=== PATIENT | female | born 2000 | race Two or more races ===

== ENCOUNTER 2019-12-18 16:22 | Outpatient (CLI) | payer OTHER ==
[2019-12-18 17:09] LABS: APPEARANCE,URINE SLIGHTLY-CLOUDY; BILIRUBIN,URINE NEGATIVE (NEGATIVE); COLOR,URINE YELLOW; GLUCOSE, URINE NEGATIVE (NEGATIVE); KETONES,URINE NEGATIVE (NEGATIVE); LEUKOCYTE ESTERASE,URINE NEGATIVE (NEGATIVE); NITRITE,URINE NEGATIVE (NEGATIVE); PROTEIN,URINE NEGATIVE (NEGATIVE); URINE SPECIFIC GRAVITY 1.013; UROBILINOGEN,URINE NEGATIVE mg/dL (<2.0)
[2019-12-18 17:22] LABS: BACTERIA (WET MOUNT) 4+ BACTERIA SEEN; EPITHELIALS (WET MOUNT) 4+ EPITHELIALS SEEN; RBCS (WET MOUNT) 2+ RBCS SEEN; T.VAGINALIS (WET MOUNT) NO TRICHOMONAS SEEN; WBCS (WET MOUNT) 4+ WBCS SEEN; YEAST (WET MOUNT) NO YEAST SEEN
[2019-12-18 17:22] LABS: URINE AMPHETAMINES SCREEN NEGATIVE; URINE BENZODIAZEPINES SCREEN NEGATIVE; URINE COCAINE SCREEN NEGATIVE; URINE MARIJUANA (THC) SCREEN NEGATIVE; URINE METHADONE SCREEN NEGATIVE; URINE PHENCYCLIDINE SCREEN NEGATIVE
[2019-12-18 17:26] LABS: URINE BARBITURATES SCREEN NEGATIVE
[2019-12-18 18:45] LABS: CHLAM PCR NOT DETECTED (NOT DETECT)
--- NOTE | 2019-12-18 19:19 | Non Stress Test Report ---
Non Stress Test Datetime Report Generated by CPN: 12/18/2019 19:19 DEMOGRAPHIC EGA NST: 33.3 INDICATION Indication for Study (NST) Other: IUP @ 33.3; not in labor VITAL SIGNS Temperature - NST: 98.6 Pulse - NST: 103 RESP - NST: 18 NBPSYS NST: 96 NBPDIA NST: 54 MONITORING Monitor Explained: Monitor Explained; Test Explained; Patient Verbalized Understanding Time on Monitor: 12/18/2019 16:40 Time off Monitor: 12/18/2019 19:00 NST Duration: 140 NST INTERVENTIONS NST Interventions: PO Hydration Physician Notified NST: Dr. Zaldivar BABY A: [id number] BABY A Movement : Present Contraction Frequency : Rare FHR Baseline : 145 Accelerations : 15X15 Decelerations : None Variability : Moderate 6-25bpm NST Review: Meets Criteria for Reactive NST NST Review and Verified By : SAIGE Barrera NST Results: Reactive NST REPORT Report Trigger: Send Report
== END 2019-12-18 19:14 | disposition home or self-care (01) ==
LOC: LC 16:22
PROVIDERS: ATTEND Obstetrics & Gynecology
DX: O47.03 False labor before 37 completed weeks of gestation, third trimester (principal); Z3A.33 33 weeks gestation of pregnancy
CPT/HCPCS: 59025; 80307; 81001; 87210; 87491; 87591

== ENCOUNTER 2020-01-28 08:19 | Inpatient (IN) | payer OTHER ==
[2020-01-28] MEDS ORDERED: OXYTOCIN/0.9 % SODIUM CHLORIDE 30 UNIT/500 ML RTUINJ ONE (08:32)
[2020-01-28] MEDS ORDERED: LIDOCAINE 1% INJ-PF (10 MG/ML) 30 ML SDV ONE (08:32)
[2020-01-28] MEDS ORDERED: OXYTOCIN 10 UNIT/ML VIAL ONE (08:32)
[2020-01-28] MEDS ORDERED: MISOPROSTOL 0.2 MG TABLET ONE (08:32)
[2020-01-28] MEDS ORDERED: PENICILLIN G-K 5 MILLION UNIT VIAL ONE (08:45)
--- NOTE | 2020-01-28 08:47 | Admission Physical ---
Datetime Report Generated by CPN: 01/28/2020 08:47 CURRENT ADMISSION Chief Complaint: Uterine Contractions Chief Complaint Other: Arrived with painful regular contractions : active labor Admit Impression : Term, Intrauterine ; Active Labor Admit Plan: Admit to Unit; Initiate Labor Protocol ALLERGIES Medication Allergies: No Medication Allergies: No Known Allergies (12/18/2019) Latex: No Latex Allergies OBSTETRICAL HISTORY EDC: 02/02/2020 00:00 : 2 Para: 1 Term: 1 PHYSICAL EXAM General: Normal HEENT: Normal Neurologic: Normal Thyroid: Normal Heart: Normal Lungs: Normal Breast: Normal Back: Normal Abdomen: Normal Genitourinary Exam: Normal Extremities: Normal DTRs: Normal Pelvic Type: Adequate Vital Signs: Reviewed; Within Normal Limits VAGINAL EXAM Dilatation: 9 Effacement: 100 Station: -1 Contraction Comments: every 2-4 minutes MEMBRANES Membranes: Intact FETUS A EGA: 39.2 Monitoring: External US FHR- Baseline: 125 Variability: Moderate 6-25bpm Accelerations: 15X15 Decelerations: None FHR Category: Category I Presentation: Breech Admit Comment: at 39.2 wks EGA in Active labor -Admit to LDR -VS Q 1 hr -CEFM and toco -NPO and IVFs: LR bolus 1 liter then 125 cc/hr -GBS positive, begin PCN but advancely dilated at 9 cm so one dose anticipated -Hx of one prior , anticipate INFORMED CONSENT Informed Consent Obtained: Vaginal Delivery; Risks, Benefits and Alternatives Discussed Signature: with User ID: [email or web address] : with User ID: [email or web address]
[2020-01-28] MEDS ORDERED: ACETAMINOPHEN WITH CODEINE #3 TABLET PO PRN ×2 (09:01)
[2020-01-28] MEDS ORDERED: ACETAMINOPHEN 650 MG SUPP.RECT PR PRN (09:01)
[2020-01-28] MEDS ORDERED: PROMETHAZINE HCL 25 MG SUPP.RECT PR PRN (09:01)
[2020-01-28] MEDS ORDERED: OXYTOCIN/0.9 % SODIUM CHLORIDE 30 UNIT/500 ML RTUINJ IV PRN (09:01)
[2020-01-28] MEDS ORDERED: ZOLPIDEM TARTRATE 5 MG TABLET PO PRN (09:01)
[2020-01-28] MEDS ORDERED: DIPH/PERTUSS(ACELL)/TETANUS VAC/PF 0.5 ML SYR (>=10YO) IM PRN (09:01)
[2020-01-28] MEDS ORDERED: BENZOCAINE/MENTHOL AEROSOL SPRAY 56 ML TOP PRN (09:01)
[2020-01-28] MEDS ORDERED: PSEUDOEPHEDRINE HCL 30 MG TABLET PO PRN (09:01)
[2020-01-28] MEDS ORDERED: MEASLES,MUMPS&RUBELLA VACC/PF 0.5 ML VIAL SUBCUT PRN (09:01)
[2020-01-28] MEDS ORDERED: PROMETHAZINE HCL 25 MG TABLET PO PRN (09:01)
[2020-01-28] MEDS ORDERED: DIBUCAINE 1% OINTMENT 28 GM TP PRN (09:01)
[2020-01-28] MEDS ORDERED: DIPHENHYDRAMINE HCL 25 MG CAPSULE PO PRN (09:01)
[2020-01-28] MEDS ORDERED: NA PHOS,M-B/NA PHOS,DI-BA (ADULT) 133 ML ENEMA PR PRN (09:01)
[2020-01-28] MEDS ORDERED: GLYCERIN/WITCH HAZEL LEAF 1 EACH MED..WIPE TP PRN (09:01)
[2020-01-28] MEDS ORDERED: MAGNESIUM HYDROXIDE SUSP 30 ML UDCUP PO PRN (09:01)
[2020-01-28] MEDS ORDERED: PROMETHAZINE HCL INJ 25 MG/1 ML VIAL IV PRN (09:01)
[2020-01-28 12:57] LABS: APPEARANCE,URINE CLEAR; BILIRUBIN,URINE NEGATIVE (NEGATIVE); GLUCOSE, URINE NEGATIVE (NEGATIVE); KETONES,URINE TRACE mg/dL (NEGATIVE); LEUKOCYTE ESTERASE,URINE NEGATIVE (NEGATIVE); NITRITE,URINE NEGATIVE (NEGATIVE); PROTEIN,URINE 30 mg/dL (NEGATIVE); URINE SPECIFIC GRAVITY 1.008; UROBILINOGEN,URINE NEGATIVE mg/dL (<2.0)
[2020-01-28 13:00] LABS: COLOR,URINE RED
[2020-01-28 13:08] LABS: URINE AMPHETAMINES SCREEN NEGATIVE; URINE BARBITURATES SCREEN NEGATIVE; URINE BENZODIAZEPINES SCREEN NEGATIVE; URINE COCAINE SCREEN NEGATIVE; URINE MARIJUANA (THC) SCREEN NEGATIVE; URINE METHADONE SCREEN NEGATIVE; URINE PHENCYCLIDINE SCREEN NEGATIVE
[2020-01-28 13:23] LABS: ABSOLUTE MONOCYTES (AUTO) 0.8 10^3/uL (0.1-1.4); ABSOLUTE NEUT (AUTO) 11.9 10^3/uL (1.7-8.2); BASOPHILS % (AUTO) 0.1 % (0-2); EOSINOPHILS % (AUTO) 0.1 % (0-6); HEMOGLOBIN 12.9 g/dL (12.0-15.5); LYMPHOCYTES % (AUTO) 13.4 % (13-45); MEAN CORPUSCULAR HEMOGLOBIN 30.9 pg (27.0-33.4); MEAN CORPUSCULAR HGB CONC 34.9 g/dL (32.0-36.0); MEAN CORPUSCULAR VOLUME 89 fl (80-97); MONOCYTES % (AUTO) 5.3 % (3-13); PLATELET COUNT 171 10^3/uL (150-450); RED BLOOD COUNT 4.18 10^6/uL (3.72-5.28); RED CELL DISTRIBUTION WIDTH 14.3 % (11.5-14.0); SEGMENTED NEUTROPHILS % (AUTO) 81.1 % (42-78); TOTAL CELLS COUNTED % (AUTO) 100 %; WHITE BLOOD COUNT 14.7 10^3/uL (4.0-10.5)
--- NOTE | 2020-01-28 13:45 | Delivery Summary ---
Del Sum A-C Datetime Report Generated by CPN: 01/28/2020 13:45 DELIVERY PERSONNEL DELIVERY PERSONNEL: [id number] Delivery Doctor:: Cherry Thornton CNM Labor and Delivery Nurse:: BUCK Godfrey Labor and Delivery Nurse:: Sheila Vera RN Nursery Nurse:: Nika Snider RN MATERNAL INFORMATION Delivery Anesthesia: None Meds After Delivery Comment: pitocin 30 units/500 nss Delivery QBL: 100 Maternal Complications: Precipitous Labor (<3hrs) Provider Comments: pt complete and started pushing, moving up in bed for delivery, out of control, viable female OA to ANTIONETTE, loose nuchal cord x 1 reduced, placed on mothers abdomen, mod meconium, cord clamped and cut after 2 minutes, given to nursery nurse, hsb at , spont delivery of grossly normal intact placenta FFFM massage, IV Pitocin, baby and mom remain in recovery in stable condition GBS +, unable to get antibiotics LABOR SUMMARY EDC: 02/02/2020 00:00 No. Babies in Womb: 1 Attempted: No Labor Anesthesia: None LABOR INFORMATION Reason for Induction: Not Applicable Onset of Labor: 01/28/2020 05:00 Complete Dilatation: 01/28/2020 08:46 Oxytocin: N/A Group B Beta Strep: positive Antibiotics # of Doses: 0 MEMBRANES Membranes Rupture Method: Spontaneous Rupture of Membranes: 01/28/2020 06:35 Length of Rupture (hr): 2.27 Amniotic Fluid Color: Moderate Meconium Amniotic Fluid Amount: Moderate Amniotic Fluid Odor: Normal STAGES OF LABOR Stage 1 hr: 3 Stage 1 min: 46 Stage 2 hr: 0 Stage 2 min: 5 Stage 3 hr: 0 Stage 3 min: 8 Total Time in Labor hr: 3 Total Time in Labor min: 59 VAGINAL DELIVERY Episiotomy: None Laceration #1: None Laceration Extension #1: N/A Laceration Repair: Not Applicable BABY A INFORMATION Delivery Date/Time: 01/28/2020 08:51 Method of Delivery: Vaginal Nurse Controlled Delivery: No Born in Route : No : N/A Forceps: N/A Vacuum Extraction: N/A Shoulder Dystocia : No PRESENTATION/POSITION BABY A Presentation: Cephalic Cephalic Presentation: Vertex Breech Presentation: N/A PLACENTA INFORMATION BABY A Placenta Delivery Time : 01/28/2020 08:59 Placenta Method of Delivery: Spontaneous Placenta Status: Delivered SCORES BABY A Heart Rate 1 min: >100 bpm Resp Effort 1 min: Good Cry Reflex Irritability 1 min: Cough or Sneeze or Pulls Away Muscle Tone 1 min: Active Motion Color 1 min: Blue/Pale SCORE 1 MIN: 8 Heart Rate 5 min: >100 bpm Resp Effort 5 min: Good Cry Reflex Irritability 5 min: Cough or Sneeze or Pulls Away Muscle Tone 5 min: Active Motion Color 5 min: Body [place], Extremities Blue SCORE 5 MIN: 9 INFANT INFORMATION BABY A Gestational Age at Delivery: 39.2 Gestational Status: Full Term- 39- 40.6 Weeks Infant Outcome : Liveborn Infant Condition : Stable Infant Sex: Female IDENTIFICATION BABY A Verification Date/Time: 01/28/2020 08:51 ID Band Number: [id number] Mother's Name Verified: Yes Infant RN Verifying : SAutry Additional Verifying Personnel: K Crimm WEIGHT/LENGTH BABY A Infant Birthweight (gm): 3587 Infant Weight (lb): 7 Weight (oz): 15 Infant Length (in): 20.00 Infant Length (cm): 50.80 CORD INFORMATION BABY A No. Cord Vessels: 3 Nuchal Cord : Around Neck x1, Loose Suction: Mouth; Nose ASSESSMENT BABY A Complications: None Physical Findings at Delivery: Within Normal Limits Respirations: Appears Normal Skin to Skin: Yes Polisher Aluminum/ALS Called : No Infant Care By: Shabnam Snider RN Transferred To: Remains with Mother
--- NOTE | 2020-01-28 13:49 | Warning Signs in Babies ---
VOD Warning Signs Datetime Report Generated by [facility]: 01/28/2020 13:49 VOD#608 -Warning Signs in Babies: Viewed with Parent(s)/Family (12/18/2019 16:26:Russ Regalado RN)
--- NOTE | 2020-01-28 13:50 | Warning Signs in Babies ---
VOD Warning Signs Datetime Report Generated by [facility]: 01/28/2020 13:50 VOD#608 -Warning Signs in Babies: Viewed with Parent(s)/Family (01/28/2020 13:49:Russ Regalado RN)
[2020-01-28] MEDS ORDERED: IBUPROFEN 800 MG TABLET ONE (13:57)
[2020-01-28] MEDS: IBUPROFEN 800 MG TABLET PO SCH ×2 (14:07→18:00)
[2020-01-28] MEDS: FERROUS SULFATE 325 MG TABLET PO SCH ×2 (14:28→18:00)
[2020-01-28] MEDS: FAMOTIDINE 20 MG TABLET PO SCH ×2 (14:28→22:23)
[2020-01-28] MEDS: DOCUSATE SODIUM 100 MG CAPSULE PO SCH ×2 (14:28→18:00)
[2020-01-28] MEDS: PRENATAL VITAMIN W DHA CAPSULE PO SCH (14:29)
[2020-01-28] MEDS: SENNOSIDES/DOCUSATE 8.6-50 MG 1 EACH TABLET PO SCH (14:29)
[2020-01-29] MEDS: IBUPROFEN 800 MG TABLET PO SCH ×3 (02:06→18:47)
[2020-01-29 08:22] LABS: HEMATOCRIT 34.7 % (36.0-47.0); HEMOGLOBIN 12.2 g/dL (12.0-15.5); MEAN CORPUSCULAR HEMOGLOBIN 31.5 pg (27.0-33.4); MEAN CORPUSCULAR VOLUME 90 fl (80-97); PLATELET COUNT 136 10^3/uL (150-450); RED BLOOD COUNT 3.86 10^6/uL (3.72-5.28); RED CELL DISTRIBUTION WIDTH 14.2 % (11.5-14.0); WHITE BLOOD COUNT 8.4 10^3/uL (4.0-10.5)
[2020-01-29] MEDS: FERROUS SULFATE 325 MG TABLET PO SCH ×2 (09:46→18:47)
[2020-01-29] MEDS: FAMOTIDINE 20 MG TABLET PO SCH ×2 (09:46→23:51)
[2020-01-29] MEDS: PRENATAL VITAMIN W DHA CAPSULE PO SCH (09:47)
[2020-01-29] MEDS: SENNOSIDES/DOCUSATE 8.6-50 MG 1 EACH TABLET PO SCH (09:47)
[2020-01-29] MEDS: DOCUSATE SODIUM 100 MG CAPSULE PO SCH ×2 (09:47→18:47)
--- NOTE | 2020-01-29 10:30 | PDOC PROGRESS REPORT ---
Subjective-OB Progress Note for:: 01/29/20 - PP Day #1, doing well, UOB, voiding, ,O+ , Rubella Immune Physical Exam (OB) Vital Signs: Temp Pulse Resp BP Pulse Ox 97.9 F 61 16 110/50 L 99 01/29/20 07:53 01/29/20 07:53 01/29/20 07:53 01/29/20 07:53 01/29/20 07:53 Intake & Output 01/28/20 01/29/20 01/30/20 06:59 06:59 06:59 Weight 80.4 kg - General General Appearance: Appears well, Alert In distress: None - PIH/Pre-Eclampsia DTR's: 2 + Clonus: Negative Headache: Absent Epigastric Pain: No Visual Changes: No - Lochia Lochia Amount: Scant < 10 ml Lochia Color: Rubra/Red - Abdomen Description: Soft Fundal Description: Firm Fundal Height: u/u - u/2 - Respiratory Respiratory Status: No respiratory distress - Abdominal Distension: No distension Tenderness: Nontender - Genitourinary Genitourinary Note: voiding - Extremities Upper extremity: Normal inspection Lower extremities: Normal inspection - Neurological Cognition: Normal Orientation: AAOx4 - Psychological Associated symptoms: Normal affect, Normal mood - Skin Skin Temperature: Warm Skin Moisture: Dry Objective-Diagnostic Laboratory: 01/29/20 06:53 01/28/20 01/28/20 01/28/20 11:59 12:55 12:55 WBC 14.7 H RBC 4.18 Hgb 12.9 Hct 37.0 MCV 89 MCH 30.9 MCHC 34.9 RDW 14.3 H Plt Count 171 Seg Neutrophils % 81.1 H Urine Color RED Urine Appearance CLEAR Urine pH 7.0 Ur Specific [place] 1.008 Urine Protein 30 H Urine Glucose (UA) NEGATIVE Urine Ketones TRACE H Urine Blood LARGE H Urine Nitrite NEGATIVE Ur Leukocyte Esterase NEGATIVE Urine WBC (Auto) 47 Urine RBC (Auto) >182 Blood Type O POSITIVE Antibody Screen NEGATIVE 01/29/20 06:53 WBC 8.4 RBC 3.86 Hgb 12.2 Hct 34.7 L MCV 90 MCH 31.5 MCHC 35.0 RDW 14.2 H Plt Count 136 L Seg Neutrophils % Urine Color Urine Appearance Urine pH Ur Specific [place] Urine Protein Urine Glucose (UA) Urine Ketones Urine Blood Urine Nitrite Ur Leukocyte Esterase Urine WBC (Auto) Urine RBC (Auto) Blood Type Antibody Screen Assessment and Plan(PN) - Assessment and Plan (1) Normal course Is this a current diagnosis for this admission?: Yes (2) Precipitate labor, delivered, current hospitalization Is this a current diagnosis for this admission?: Yes Plan:: routine PP orders, ambulation encouraged - Time Spent with Patient Time with patient: Less than 15 minutes Medications reviewed and adjusted accordingly: Yes - Disposition Anticipated Discharge: Home Within: within 24 hours
[2020-01-30] MEDS: IBUPROFEN 800 MG TABLET PO SCH ×2 (02:30→10:20)
--- NOTE | 2020-01-30 10:00 | PDOC PROGRESS REPORT ---
Subjective-OB Progress Note for:: 01/30/20 Subjective: doing well, no c/o, , baby jaundice and under lights Physical Exam (OB) Vital Signs: Temp Pulse Resp BP Pulse Ox 98.1 F 62 16 116/59 L 100 01/30/20 07:38 01/30/20 07:38 01/30/20 07:38 01/30/20 07:38 01/30/20 07:38 Intake & Output 01/29/20 01/30/20 01/31/20 06:59 06:59 06:59 Intake Total 1000 Balance 1000 Weight 80.4 kg - PIH/Pre-Eclampsia DTR's: 1 + Clonus: Negative Headache: Absent Epigastric Pain: No Visual Changes: No - Lochia Lochia Amount: Scant < 10 ml Lochia Color: Rubra/Red - Abdomen Description: Soft Hernia Present: No Fundal Description: Firm, Midline Fundal Height: u/u - u/2 Objective-Diagnostic Laboratory: 01/29/20 06:53 Assessment and Plan(PN) - Assessment and Plan (1) Normal course Is this a current diagnosis for this admission?: Yes (2) Precipitate labor, delivered, current hospitalization Is this a current diagnosis for this admission?: Yes - Time Spent with Patient Time with patient: Less than 15 minutes Medications reviewed and adjusted accordingly: Yes - Disposition Anticipated Discharge: Home Within: within 24 hours
--- NOTE | 2020-01-30 10:04 | PDOC DISCHARGE SUMMARY ---
Impression - Admit/DC Date/PCP Admission Date/Primary Care Provider: 01/28/20 08:33 NO LOCALCO Discharge Date: 01/30/20 - Discharge Diagnosis (1) Normal course Is this a current diagnosis for this admission?: Yes (2) Precipitate labor, delivered, current hospitalization Is this a current diagnosis for this admission?: Yes - Additional Information Resuscitation Status: Full Code Discharge Diet: As Tolerated, Regular Discharge Activity: Activity As Tolerated, Pelvic Rest Referrals: DOMINIC,NO [Primary Care Provider] - () SCOTT PAULINO MD [ACTIVE STAFF] - ([facility] 4 weeks) Home Medications: Pnv No.95/Ferrous Fum/Folic AC [ Caplet] 1 tab PO DAILY 12/18/19 HPI Gestational Age: 39.2 Reason(s) for Admission: Onset of Labor, Group B Strep Positive Procedures: Ultrasound Intrapartum Procedure(s): Spontaneous Vaginal Delivery Hospital Course Hospital Course: normal pp Results Laboratory Results: WBC 8.4 10^3/uL (4.0-10.5) 01/29/20 06:53 RBC 3.86 10^6/uL (3.72-5.28) 01/29/20 06:53 Hgb 12.2 g/dL (12.0-15.5) 01/29/20 06:53 Hct 34.7 % (36.0-47.0) L 01/29/20 06:53 MCV 90 fl (80-97) 01/29/20 06:53 MCH 31.5 pg (27.0-33.4) 01/29/20 06:53 MCHC 35.0 g/dL (32.0-36.0) 01/29/20 06:53 RDW 14.2 % (11.5-14.0) H 01/29/20 06:53 Plt Count 136 10^3/uL (150-450) L 01/29/20 06:53 Lymph % (Auto) 13.4 % (13-45) 01/28/20 12:55 [place] % (Auto) 5.3 % (3-13) 01/28/20 12:55 Eos % (Auto) 0.1 % (0-6) 01/28/20 12:55 Baso % (Auto) 0.1 % (0-2) 01/28/20 12:55 Absolute Neuts (auto) 11.9 10^3/uL (1.7-8.2) H 01/28/20 12:55 Absolute Lymphs (auto) 2.0 10^3/uL (0.5-4.7) 01/28/20 12:55 Absolute Monos (auto) 0.8 10^3/uL (0.1-1.4) 01/28/20 12:55 Absolute Eos (auto) 0.0 10^3/uL (0.0-0.6) 01/28/20 12:55 Absolute Basos (auto) 0.0 10^3/uL (0.0-0.2) 01/28/20 12:55 Seg Neutrophils % 81.1 % (42-78) H 01/28/20 12:55 Urine Color RED 01/28/20 11:59 Urine Appearance CLEAR 01/28/20 11:59 Urine pH 7.0 (5.0-9.0) 01/28/20 11:59 Ur Specific [place] 1.008 01/28/20 11:59 Urine Protein 30 mg/dL (NEGATIVE) H 01/28/20 11:59 Urine Glucose (UA) NEGATIVE mg/dL (NEGATIVE) 01/28/20 11:59 Urine Ketones TRACE mg/dL (NEGATIVE) H 01/28/20 11:59 Urine Blood LARGE (NEGATIVE) H 01/28/20 11:59 Urine Nitrite NEGATIVE (NEGATIVE) 01/28/20 11:59 Urine Bilirubin NEGATIVE (NEGATIVE) 01/28/20 11:59 Urine Urobilinogen NEGATIVE mg/dL (<2.0) 01/28/20 11:59 Ur Leukocyte Esterase NEGATIVE (NEGATIVE) 01/28/20 11:59 Urine WBC (Auto) 47 /HPF 01/28/20 11:59 Urine RBC (Auto) >182 /HPF 01/28/20 11:59 Urine Mucus (Auto) RARE /LPF 01/28/20 11:59 Urine Ascorbic Acid NEGATIVE (NEGATIVE) 01/28/20 11:59 Urine Opiates Screen NEGATIVE 01/28/20 11:59 Urine Methadone Screen NEGATIVE 01/28/20 11:59 Ur Barbiturates Screen NEGATIVE 01/28/20 11:59 Ur Phencyclidine Scrn NEGATIVE 01/28/20 11:59 Ur Amphetamines Screen NEGATIVE 01/28/20 11:59 U Benzodiazepines Scrn NEGATIVE 01/28/20 11:59 Urine Cocaine Screen NEGATIVE 01/28/20 11:59 U Marijuana (THC) Screen NEGATIVE 01/28/20 11:59 RPR NONREACTIVE (NONREACTIVE) 01/28/20 12:55 Blood Type O POSITIVE 01/28/20 12:55 Antibody Screen NEGATIVE 01/28/20 12:55 Plan Health Concerns: routine pp Plan of Treatment: discharge home, rev S&S to report Goals: no complications Time Spent: Less than 30 Minutes
[2020-01-30] MEDS: FAMOTIDINE 20 MG TABLET PO SCH (10:20)
[2020-01-30] MEDS: PRENATAL VITAMIN W DHA CAPSULE PO SCH (10:20)
[2020-01-30] MEDS: SENNOSIDES/DOCUSATE 8.6-50 MG 1 EACH TABLET PO SCH (10:21)
[2020-01-30] MEDS: DOCUSATE SODIUM 100 MG CAPSULE PO SCH (10:21)
[2020-01-30] MEDS: FERROUS SULFATE 325 MG TABLET PO SCH (10:21)
[2020-01-30 10:46] VITALS: BP 111/51
== END 2020-01-30 17:03 | disposition home or self-care (01) | DRG 807 ==
LOC: LC 08:19 → LR 08:33 → 2S 14:05
PROVIDERS: ADMIT Student in an Organized Health Care Education/Training Program; ATTEND Student in an Organized Health Care Education/Training Program
PROC: 10E0XZZ Delivery of Products of Conception, External Approach (ICD-10-PCS; principal; 2020-01-28)
DX: O62.3 Precipitate labor (principal); Z37.0 Single live birth; O69.81X0 Labor and delivery complicated by cord around neck, without compression, not applicable or unspecified; O77.0 Labor and delivery complicated by meconium in amniotic fluid; O99.824 Streptococcus B carrier state complicating childbirth; Z3A.39 39 weeks gestation of pregnancy
CPT/HCPCS: 36415; 80307; 81001; 85025; 85027; 86592; 86850; 86900; 86901; J2540; J2590; J3490